=== PATIENT | male | born 1950 | race Caucasian/White ===

== ENCOUNTER 2018-04-02 12:41 | Inpatient (IN) | payer MEDICARE, BC ==
[2018-04-02] VITALS (10 sets, daily range): BP systolic 108–165; BP diastolic 70–105
[~2018-04-02] VITALS: Ht 175.3 cm; Wt 123.8 kg
[~2018-04-02 12:41] MED LIST: CENTRUM SILVER1 EAC4 PO; DOXAZOSIN MESYLA2 MG PO; FISH OIL500 MG PO; GLIMEPIRIDE2 MG PO; METFORMIN HCL500 M2 PO; METHOTREXATE2.5 MG PO; MONTELUKAST SOD10 MG PO; TAMSULOSIN HCL0.4 MG PO; WARFARIN PO
[2018-04-02] MEDS ORDERED: ENOXAPARIN SODIUM INJ 100 MG/ML SYR SC STA (12:47)
[2018-04-02] MEDS ORDERED: ASPIRIN 81 MG CHEW TAB PO ONE (13:15)
[2018-04-02] MEDS ORDERED: SODIUM CHLORIDE FLUSH 10 ML SYR INJ PRN (13:15)
[2018-04-02 13:39] LABS: BASOPHILS # (AUTO) 0.1 (0.0-0.1); BASOPHILS % 0.5 % (0.0-1.0); EOSINOPHILS # (AUTO) 0.3 (0.0-0.4); EOSINOPHILS % 2.2 % (0.0-6.0); HEMATOCRIT 45.5 % (38.2-49.6); HEMOGLOBIN 15.2 g/dL (14.0-18.0); LYMPHOCYTES # (AUTO) 1.5 (1.0-3.2); LYMPHOCYTES % 12.6 % (18.0-39.1); MEAN CORPUSCULAR HEMOGLOBIN 31.3 pg (28-32); MEAN CORPUSCULAR HGB CONC 33.4 g/dL (31-35); MEAN CORPUSCULAR VOLUME 93.6 fL (81-99); MONOCYTES # (AUTO) 1.3 (0.2-0.8); MONOCYTES % 10.4 % (4.4-11.3); NEUTROPHILS # (AUTO) 8.9 (2.1-6.9); NEUTROPHILS % 73.6 % (38.7-80.0); PLATELET COUNT 195 x10e3/uL (140-360); RED BLOOD COUNT 4.86 x10e6/uL (4.3-5.7); RED CELL DISTRIBUTION WIDTH 16.1 % (11.7-14.4)
[2018-04-02 13:54] LABS: INR 0.98; PARTIAL THROMBOPLASTIN TIME 26.3 seconds (23.8-35.5); PROTHROMBIN TIME 13.9 seconds (11.9-14.5)
[2018-04-02 14:01] LABS: ALANINE AMINOTRANSFERASE 27 IU/L (0-55); ALBUMIN 3.5 g/dL (3.5-5.0); ALKALINE PHOSPHATASE 68 IU/L (40-150); ANION GAP 16.3 mmol/L (8-16); BLOOD UREA NITROGEN 13 mg/dL (7-26); BUN/CREATININE RATIO 11 (6-25); CARBON DIOXIDE 22 mmol/L (22-29); CHLORIDE 102 mmol/L (98-107); CREATINE KINASE 81 IU/L (30-200); CREATININE, SERUM 1.16 mg/dL (0.72-1.25); EST GLOMERULAR FILTRATION RATE > 60 ML/MIN (60-); GLUCOSE 218 mg/dL (74-118); POTASSIUM 4.3 mmol/L (3.5-5.1); SODIUM 136 mmol/L (136-145)
[2018-04-02 14:02] LABS: CLARITY,URINE SL CLOUDY (CLEAR); COLOR,URINE AMBER (YELLOW); LEUKOCYTE ESTERASE ,URINE NEGATIVE (NEGATIVE); NITRITE,URINE NEGATIVE (NEGATIVE)
[2018-04-02 14:03] LABS: BILIRUBIN,URINE 1+ (NEGATIVE); KETONES,URINE NEGATIVE (NEGATIVE); PROTEIN,URINE DIPSTICK 2+ (NEGATIVE); URINE UROBILINOGEN 1 mg/dL (0.2 - 1)
--- NOTE | 2018-04-02 14:05 | Diagnostic Imaging Report ---
Examination: Single AP view of the chest. COMPARISON: November 21, 2016 INDICATION: Shortness of breath DISCUSSION: Lines/tubes: None. Lungs: Left lung base obscured due to soft tissue attenuation. The remainder the lungs are clear. Pleura: There is no pleural effusion or pneumothorax. Heart and mediastinum: The heart and central vasculature is enlarged Bones and soft tissues: No acute bony abnormalities. IMPRESSION: Cardiomegaly. No edema or visualized pneumonia. Signed by: Dr. Mitesh Joy M.D. on 04/02/2018 2:02 PM
[2018-04-02 14:12] LABS: BACTERIA,URINE MODERATE /HPF; RBC,URINE 0-5 /HPF (0-5); RENAL EPITHELIAL CELLS,URINE RARE
[2018-04-02 14:13] LABS: AMORPHOUS SEDIMENT,URINE MANY (FEW); MUCUS,URINE MANY (RARE)
--- NOTE | 2018-04-02 15:15 | Diagnostic Imaging Report ---
EXAMINATION: CT scan of the chest with contrast. TECHNIQUE: Helical CT images of the chest were performed from the lung apices to the level of the adrenal glands after the intravenous administration of cc of Omnipaque 300. Coronal and sagittal reformatted images were obtained.Cervical disc herniation COMPARISON: None. CLINICAL HISTORY:Shortness of breath, chest pain DISCUSSION: LINES/TUBES: None. LUNGS AND AIRWAYS: Multifocal pulmonary emboli involving all lobar branches of the right lung and predominantly involving the lobar branches of the left lower lobe. Clots extends into the main pulmonary arteries, greater on the right. The main pulmonary artery measures 4 cm in transverse dimension. No bowing of the interventricular septum. Small left pleural effusion with atelectasis. PLEURA: No pneumothorax or pleural effusions. HEART AND MEDIASTINUM: The thyroid gland is normal. The heart is enlarged. Mild coronary artery calcifications. LYMPH NODES: There is no mediastinal, hilar or axillary lymphadenopathy. ABDOMEN: Limited contrast-enhanced views of the upper abdomen show no abnormality within the visualized liver, spleen, pancreas, or kidneys. The adrenal glands are normal. BONES AND SOFT TISSUES: Skeletal hyperostosis. IMPRESSION: Bilateral pulmonary emboli, predominantly lobar with mild involvement of the main pulmonary arteries. Small left effusion and atelectasis. Discussed with Dr. Ordonez at at 307pm. Signed by: Dr. Mitesh Joy M.D. on 04/02/2018 3:12 PM
[2018-04-02] MEDS ORDERED: SODIUM CHLORIDE 0.9% 50ML 50 ML ONE (16:00)
[2018-04-02] MEDS ORDERED: IOPAMIDOL 370 MG/ML 200 ML INFUS..BTL INJ ONE (16:00)
[2018-04-02] MEDS: ENOXAPARIN SODIUM INJ 100 MG/ML SYR SC SCH (20:07)
[2018-04-02] MEDS: MORPHINE SULFATE 2 MG/ML SYR IV PRN ×2 (20:08→23:02)
[2018-04-02] MEDS: ONDANSETRON HCL INJ 2 MG/ML VIAL IV PRN (20:12)
[2018-04-02] MEDS: DOXAZOSIN MESYLATE 2 MG TAB PO SCH (20:49)
[2018-04-02] MEDS: MONTELUKAST SODIUM 10 MG TAB PO SCH (20:50)
[2018-04-02] MEDS: METFORMIN HCL 500 MG TAB PO SCH (20:50)
[2018-04-02 21:33] LABS: CREATINE KINASE MB 2.1 ng/mL (0-5.0)
[2018-04-03] VITALS (13 sets, daily range): BP systolic 115–134; BP diastolic 74–94
[2018-04-03] MEDS ORDERED: ENOXAPARIN SODIUM INJ 100 MG/ML SYR SC SCH (01:15)
[2018-04-03] MEDS: MORPHINE SULFATE 2 MG/ML SYR IV PRN ×2 (03:00→06:24)
[2018-04-03 05:26] LABS: CHOL/HDL RATIO 4.1 (3.9-4.7)
[2018-04-03] MEDS: ONDANSETRON HCL INJ 2 MG/ML VIAL IV PRN (06:24)
[2018-04-03] MEDS: TAMSULOSIN HCL 0.4 MG CAP PO SCH (09:00)
[2018-04-03] MEDS: METFORMIN HCL 500 MG TAB PO SCH ×2 (09:00→16:30)
[2018-04-03] MEDS: ENOXAPARIN SODIUM INJ 100 MG/ML SYR SC SCH ×2 (09:00→21:00)
[2018-04-03] MEDS ORDERED: METFORMIN HCL 500 MG TAB PO SCH (16:30)
[2018-04-03] MEDS: DOXAZOSIN MESYLATE 2 MG TAB PO SCH (21:00)
[2018-04-03] MEDS: MONTELUKAST SODIUM 10 MG TAB PO SCH (21:00)
[2018-04-04] VITALS: BP 128/73
[2018-04-04 04:00] VITALS: BP 141/86
[2018-04-04 07:35] VITALS: BP 135/82
[2018-04-04 07:48] VITALS: BP 147/103
[2018-04-04] MEDS: METFORMIN HCL 500 MG TAB PO SCH (07:57)
[2018-04-04] MEDS: ENOXAPARIN SODIUM INJ 100 MG/ML SYR SC SCH (09:42)
[2018-04-04] MEDS: TAMSULOSIN HCL 0.4 MG CAP PO SCH (09:42)
[2018-04-04 12:05] VITALS: BP 152/107
[2018-04-04] MEDS ORDERED: XARELTO10 MG PO (13:07)
[2018-04-04] MEDS ORDERED: XARELTO20 MG PO (13:10)
[2018-04-04] MEDS ORDERED: WARFARIN SOD 5 MG TAB PO SCH (17:00)
--- NOTE | 2018-04-05 10:40 | Discharge Summary ---
DISCHARGE DIAGNOSES 1. Deep venous thrombosis of the right leg. 2. Pulmonary embolus. HISTORY OF PRESENT ILLNESS AND HOSPITAL COURSE: Patient is a gentleman who came in with some right leg pain and a little bit of swelling on that leg. DVT was confirmed by ultrasonography. He also had some occasional chest pain. CT scan was done that did show some pulmonary embolus. He was brought in and placed on Lovenox, which he tolerated well and was ambulating well. We had a long discussion between the 2 options with a newer oral anticoagulant versus warfarin, and the pros and cons of bleeding, , cost. Patient chose he wanted to go ahead with the oral treatments. He was discharged home on Xarelto 15 mg b.i.d. for 3 weeks, and then 20 mg once a day thereafter. He will follow up with me in 2 weeks. Please see hospital chart for full details. EZEKIEL DE SOUZA MD Job#: [id number] ID
== END 2018-04-04 14:26 | disposition home or self-care (01) | DRG 299 ==
LOC: ER 12:41 → ERHOLD 13:09 → ICU 18:17 → MED/SURG3 04-03 15:03
PROVIDERS: ADMIT Internal Medicine; ATTEND Internal Medicine
DX: I82.401 Acute embolism and thrombosis of unspecified deep veins of right lower extremity (principal); I26.99 Other pulmonary embolism without acute cor pulmonale; I10 Essential (primary) hypertension; E11.9 Type 2 diabetes mellitus without complications; G47.33 Obstructive sleep apnea (adult) (pediatric); M19.90 Unspecified osteoarthritis, unspecified site; N40.0 Benign prostatic hyperplasia without lower urinary tract symptoms; Z79.01 Long term (current) use of anticoagulants; Z79.84 Long term (current) use of oral hypoglycemic drugs
CPT/HCPCS: 36415; 71045; 71260; 80053; 80061; 81001; 82550; 82553; 82948; 84484; 85025; 85610; 85730; 87086; 93005; 99284; J1650; J2270; J2405; Q9967

== ENCOUNTER → 2018-08-01 | Outpatient (CLI) | payer MEDICARE, BC ==
[~2018-08-01] MED LIST changes: +XARELTO10 MG PO; +XARELTO20 MG PO
--- NOTE | 2018-08-01 10:47 | Diagnostic Imaging Report ---
Lumbar Spine Radiographs: 3 views views and sacrum 2 views HISTORY: Pain. Neuromuscular dysfunction of bladder. COMPARISON: None available. DISCUSSION: There are five non-rib bearing lumbar vertebral bodies. The alignment of the spine is within normal limits. No displaced fracture or compression deformity is identified. Multilevel degenerative disc disease and spondylosis of the lumbar spine, most severely at L4-L5 and L5-S1. Marked bilateral facet arthropathy at L4-L5 and L5-S1. Large bridging osteophytes on the left L3-L4. 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 InterStim device projected on the left hemisacrum, with distal electrodes projected on the lower pelvis. Battery pack projected on the left gluteal region. Small phleboliths projected on the left hemipelvis. IMPRESSION: Multilevel degenerative disc disease and spondylosis of the lumbar spine, particularly at L4-L5 and L5-S1. Signed by: Dr. Kasi Prakash M.D. on 08/01/2018 10:44 AM
== END ==
LOC: RAD 09:34
PROVIDERS: ATTEND Urology
DX: N39.41 Urge incontinence (principal); M54.5 Low back pain; M51.37 Other intervertebral disc degeneration, lumbosacral region
CPT/HCPCS: 72100; 72220

== ENCOUNTER → 2019-12-02 | Outpatient (CLI) | payer MEDICARE, BC ==
--- NOTE | 2019-12-02 15:31 | Diagnostic Imaging Report ---
X-ray pelvis AP History: Incontinence Findings: InterStim device is seen without a change compared with the previous study of 08/01/2018. There is presence of air in the rectum. Other incidental findings include degenerative changes of the lumbar spine and regional bones along with dystrophic calcification and/or myositis ossificans especially noticeable in the ischiopubic regions. Phleboliths. Impression: As above Signed by: Iam Booker MD on 12/02/2019 3:28 PM
--- NOTE | 2019-12-02 15:34 | Diagnostic Imaging Report ---
X-ray sacrum AP and lateral. Comparison: 08/01/2018 History: InterStim device. Incontinence. Please see and report pelvis AP on the same date for details. The battery pack of the interstitial device is seen in the gluteal region. There is no sacral coccygeal fracture. Impression: As above. Also please see the report on pelvis AP on the same date. Signed by: Iam Booker MD on 12/02/2019 3:30 PM
== END ==
LOC: RAD 14:20
PROVIDERS: ATTEND Urology
DX: N39.41 Urge incontinence (principal)
CPT/HCPCS: 72170; 72220

== ENCOUNTER 2020-04-08 12:15 | Inpatient (IN) | payer MEDICARE, BC ==
[2020-04-08] VITALS (7 sets, daily range): BP systolic 102–142; BP diastolic 77–102
[~2020-04-08] VITALS: Ht 175.3 cm; Wt 128.8 kg
[2020-04-08] MEDS ORDERED: DILTIAZEM HCL 5 MG/ML 5 ML VIAL IV STA (12:37)
[2020-04-08] MEDS ORDERED: DIGOXIN INJ 0.25 MG/ML 2 ML AMP IV ONE (12:45)
[2020-04-08 13:03] LABS: BASOPHILS % 0.5 % (0.0-1.0); EOSINOPHILS % 0.5 % (0.0-6.0); HEMATOCRIT 45.1 % (38.2-49.6); HEMOGLOBIN 14.4 g/dL (14.0-18.0); LYMPHOCYTES # (AUTO) 1.1 (1.0-3.2); LYMPHOCYTES % 12.9 % (18.0-39.1); MEAN CORPUSCULAR HEMOGLOBIN 32.1 pg (28-32); MEAN CORPUSCULAR HGB CONC 31.9 g/dL (31-35); MEAN CORPUSCULAR VOLUME 100.4 fL (81-99); MONOCYTES # (AUTO) 0.7 (0.2-0.8); MONOCYTES % 8.5 % (4.4-11.3); NEUTROPHILS # (AUTO) 6.4 (2.1-6.9); NEUTROPHILS % 76.6 % (38.7-80.0); PLATELET COUNT 272 x10e3/uL (140-360); RED BLOOD COUNT 4.49 x10e6/uL (4.3-5.7); RED CELL DISTRIBUTION WIDTH 15.6 % (11.7-14.4)
[2020-04-08] MEDS ORDERED: AMIODARONE HCL 150MG 100 ML ONE (13:12)
[2020-04-08 13:15] LABS: INR 1.71; PARTIAL THROMBOPLASTIN TIME 32.3 seconds (23.8-35.5); PROTHROMBIN TIME 20.9 seconds (11.9-14.5)
[2020-04-08] MEDS ORDERED: AMIODARONE HCL 360MG 200 ML IV SCH ×2 (13:15→18:00)
[2020-04-08] MEDS ORDERED: AMIODARONE HCL 150MG 100 ML IV SCH (13:15)
[2020-04-08] MEDS ORDERED: AMIODARONE 900MG 500 ML IV SCH (13:15)
[2020-04-08] MEDS ORDERED: AMIODARONE HCL 100 ML IV ONE (13:15)
[2020-04-08 13:25] LABS: ALANINE AMINOTRANSFERASE 42 IU/L (0-55); ALBUMIN 3.9 g/dL (3.5-5.0); ALBUMIN/GLOBULIN RATIO 1.7 (0.8-2.0); ALKALINE PHOSPHATASE 46 IU/L (40-150); ANION GAP 14.1 mmol/L (8-16); BLOOD UREA NITROGEN 11 mg/dL (7-26); BUN/CREATININE RATIO 13 (6-25); CALCIUM 8.6 mg/dL (8.4-10.2); CARBON DIOXIDE 25 mmol/L (22-29); CHLORIDE 104 mmol/L (98-107); CREATINE KINASE 94 IU/L (30-200); CREATININE, SERUM 0.87 mg/dL (0.72-1.25); EST GLOMERULAR FILTRATION RATE > 60 ML/MIN (60-); GLUCOSE 223 mg/dL (74-118); MAGNESIUM 1.6 MG/DL (1.3-2.1); POTASSIUM 4.1 mmol/L (3.5-5.1); SODIUM 139 mmol/L (136-145)
[2020-04-08 13:45] LABS: THYROID STIMULATING HORMONE 1.046 uIU/mL (0.350-4.940)
[2020-04-08] MEDS ORDERED: FAMOTIDINE 20 MG/2 ML VIAL IV SCH (14:45)
[2020-04-08] MEDS ORDERED: NITROGLYCERIN 0.4 MG SUBL SL PRN (14:45)
[2020-04-08] MEDS ORDERED: ONDANSETRON HCL INJ 2MG/ML 2ML 2 MG/ML VIAL IV PRN (14:45)
[2020-04-08] MEDS ORDERED: METOPROLOL TARTRATE INJ 1 MG/ML VIAL IV NR (15:00)
[2020-04-08] MEDS ORDERED: DIGOXIN INJ 0.25 MG/ML 2 ML AMP IV NR (15:00)
[2020-04-08] MEDS: MORPHINE SULFATE 2 MG/ML SYR 1ML IV PRN (16:11)
[2020-04-08] MEDS: METOPROLOL TARTRATE 25 MG TAB PO SCH (18:45)
[2020-04-08 18:54] LABS: CREATINE KINASE MB 2.3 ng/mL (0-5.0)
[2020-04-08] MEDS: METOPROLOL TARTRATE INJ 1 MG/ML VIAL IV PRN (19:02)
[2020-04-08] MEDS: AMIODARONE 900MG 500 ML IV SCH (19:31)
[2020-04-09] VITALS (14 sets, daily range): BP systolic 95–154; BP diastolic 69–128
[2020-04-09] MEDS: FAMOTIDINE 20 MG/2 ML VIAL IV SCH ×2 (04:43→18:29)
[2020-04-09] MEDS: METOPROLOL TARTRATE 25 MG TAB PO SCH ×3 (04:43→13:47)
[2020-04-09] MEDS: METOPROLOL TARTRATE INJ 1 MG/ML VIAL IV PRN (04:45)
[2020-04-09 05:10] LABS: BASOPHILS # (AUTO) 0.1 (0.0-0.1); BASOPHILS % 0.7 % (0.0-1.0); EOSINOPHILS # (AUTO) 0.1 (0.0-0.4); EOSINOPHILS % 0.8 % (0.0-6.0); HEMATOCRIT 45.1 % (38.2-49.6); HEMOGLOBIN 14.4 g/dL (14.0-18.0); LYMPHOCYTES # (AUTO) 1.2 (1.0-3.2); LYMPHOCYTES % 14.2 % (18.0-39.1); MEAN CORPUSCULAR HEMOGLOBIN 33.6 pg (28-32); MEAN CORPUSCULAR HGB CONC 31.9 g/dL (31-35); MEAN CORPUSCULAR VOLUME 105.1 fL (81-99); MONOCYTES # (AUTO) 0.9 (0.2-0.8); MONOCYTES % 11.2 % (4.4-11.3); NEUTROPHILS # (AUTO) 6.1 (2.1-6.9); NEUTROPHILS % 72.7 % (38.7-80.0); PLATELET COUNT 165 x10e3/uL (140-360); RED BLOOD COUNT 4.29 x10e6/uL (4.3-5.7); RED CELL DISTRIBUTION WIDTH 15.8 % (11.7-14.4)
[2020-04-09 05:24] LABS: ALANINE AMINOTRANSFERASE 48 IU/L (0-55); ALBUMIN 3.8 g/dL (3.5-5.0); ALBUMIN/GLOBULIN RATIO 1.7 (0.8-2.0); ALKALINE PHOSPHATASE 40 IU/L (40-150); ANION GAP 12.5 mmol/L (8-16); BLOOD UREA NITROGEN 9 mg/dL (7-26); BUN/CREATININE RATIO 11 (6-25); CALCIUM 8.2 mg/dL (8.4-10.2); CARBON DIOXIDE 24 mmol/L (22-29); CHLORIDE 105 mmol/L (98-107); CHOL/HDL RATIO 3.3 (3.9-4.7); CHOLESTEROL 151 MD/DL (0-199); CREATININE, SERUM 0.82 mg/dL (0.72-1.25); EST GLOMERULAR FILTRATION RATE > 60 ML/MIN (60-); GLUCOSE 135 mg/dL (74-118); HDL CHOLESTEROL 46 MG/DL (40-60); LDL CHOLESTEROL 90 MG/DL (60-130); POTASSIUM 4.5 mmol/L (3.5-5.1); SODIUM 137 mmol/L (136-145); TRIGLYCERIDES 73 MG/DL (0-149)
[2020-04-09] MEDS ORDERED: FUROSEMIDE INJ 10 MG/ML 4 ML VIAL ONE (05:48)
[2020-04-09] MEDS: FUROSEMIDE INJ 10 MG/ML 4 ML VIAL IV SCH ×3 (06:18→21:30)
[2020-04-09] MEDS: MONTELUKAST SODIUM 10 MG TAB PO SCH (08:18)
[2020-04-09] MEDS: METFORMIN HCL 500 MG TAB CR PO SCH ×2 (08:18→18:28)
[2020-04-09] MEDS: TAMSULOSIN HCL 0.4 MG CAP PO SCH (08:18)
[2020-04-09] MEDS: DOXAZOSIN MESYLATE 2 MG TAB PO SCH (08:18)
[2020-04-09] MEDS: GLIMEPIRIDE 2 MG TAB PO SCH (08:18)
[2020-04-09] MEDS: AMIODARONE 900MG 500 ML IV SCH (13:19)
[2020-04-09] MEDS ORDERED: METOPROLOL TARTRATE 25 MG TAB PO SCH (14:30)
[2020-04-09] MEDS ORDERED: DIGOXIN INJ 0.25 MG/ML 2 ML AMP IV ONE (14:45)
[2020-04-09] MEDS: METOPROLOL TARTRATE 50 MG TAB PO SCH ×2 (17:31→21:31)
[2020-04-09] MEDS: RIVAROXABAN 20 MG TABLET PO SCH (18:29)
[2020-04-09] MEDS: MORPHINE SULFATE 2 MG/ML SYR 1ML IV PRN (22:17)
[2020-04-10] VITALS (14 sets, daily range): BP systolic 95–145; BP diastolic 59–97
[2020-04-10 05:38] LABS: BASOPHILS % 0.4 % (0.0-1.0); EOSINOPHILS # (AUTO) 0.1 (0.0-0.4); EOSINOPHILS % 0.5 % (0.0-6.0); HEMATOCRIT 42.7 % (38.2-49.6); HEMOGLOBIN 13.7 g/dL (14.0-18.0); LYMPHOCYTES # (AUTO) 1.1 (1.0-3.2); LYMPHOCYTES % 10.6 % (18.0-39.1); MEAN CORPUSCULAR HEMOGLOBIN 32.7 pg (28-32); MEAN CORPUSCULAR HGB CONC 32.1 g/dL (31-35); MEAN CORPUSCULAR VOLUME 101.9 fL (81-99); MONOCYTES # (AUTO) 1.1 (0.2-0.8); MONOCYTES % 10.1 % (4.4-11.3); NEUTROPHILS # (AUTO) 8.1 (2.1-6.9); NEUTROPHILS % 77.9 % (38.7-80.0); PLATELET COUNT 277 x10e3/uL (140-360); RED BLOOD COUNT 4.19 x10e6/uL (4.3-5.7); RED CELL DISTRIBUTION WIDTH 15.4 % (11.7-14.4)
[2020-04-10 06:08] LABS: BLOOD UREA NITROGEN 14 mg/dL (7-26); BUN/CREATININE RATIO 15 (6-25); CALCIUM 8.5 mg/dL (8.4-10.2); CARBON DIOXIDE 28 mmol/L (22-29); CHLORIDE 101 mmol/L (98-107); CREATININE, SERUM 0.95 mg/dL (0.72-1.25); EST GLOMERULAR FILTRATION RATE > 60 ML/MIN (60-); GLUCOSE 157 mg/dL (74-118); SODIUM 137 mmol/L (136-145)
[2020-04-10] MEDS: METOPROLOL TARTRATE 50 MG TAB PO SCH (06:43)
[2020-04-10] MEDS: FAMOTIDINE 20 MG/2 ML VIAL IV SCH ×2 (06:43→17:09)
[2020-04-10] MEDS: MONTELUKAST SODIUM 10 MG TAB PO SCH (10:09)
[2020-04-10] MEDS: METFORMIN HCL 500 MG TAB CR PO SCH ×2 (10:09→17:09)
[2020-04-10] MEDS: TAMSULOSIN HCL 0.4 MG CAP PO SCH (10:09)
[2020-04-10] MEDS: FUROSEMIDE INJ 10 MG/ML 4 ML VIAL IV SCH ×2 (10:09→21:00)
[2020-04-10] MEDS: DOXAZOSIN MESYLATE 2 MG TAB PO SCH (10:09)
[2020-04-10] MEDS: GLIMEPIRIDE 2 MG TAB PO SCH (10:09)
[2020-04-10] MEDS: AMIODARONE HCL 200 MG TAB PO SCH (17:09)
[2020-04-10] MEDS: METOPROLOL SUCCINATE 50 MG TAB XL PO SCH (17:09)
[2020-04-10] MEDS: RIVAROXABAN 20 MG TABLET PO SCH (17:09)
[2020-04-11] VITALS (8 sets, daily range): BP systolic 82–115; BP diastolic 62–97
[2020-04-11] MEDS: METOPROLOL SUCCINATE 50 MG TAB XL PO SCH ×2 (02:15→14:07)
[2020-04-11 05:23] LABS: BASOPHILS % 0.4 % (0.0-1.0); EOSINOPHILS # (AUTO) 0.1 (0.0-0.4); EOSINOPHILS % 0.6 % (0.0-6.0); HEMATOCRIT 42.2 % (38.2-49.6); HEMOGLOBIN 14.3 g/dL (14.0-18.0); LYMPHOCYTES # (AUTO) 1.1 (1.0-3.2); LYMPHOCYTES % 10.3 % (18.0-39.1); MEAN CORPUSCULAR HEMOGLOBIN 34.5 pg (28-32); MEAN CORPUSCULAR HGB CONC 33.9 g/dL (31-35); MEAN CORPUSCULAR VOLUME 101.7 fL (81-99); MONOCYTES # (AUTO) 1.4 (0.2-0.8); MONOCYTES % 13.5 % (4.4-11.3); NEUTROPHILS # (AUTO) 7.8 (2.1-6.9); NEUTROPHILS % 74.5 % (38.7-80.0); PLATELET COUNT 230 x10e3/uL (140-360); RED BLOOD COUNT 4.15 x10e6/uL (4.3-5.7); RED CELL DISTRIBUTION WIDTH 15.3 % (11.7-14.4)
[2020-04-11 05:43] LABS: ANION GAP 14.4 mmol/L (8-16); BLOOD UREA NITROGEN 16 mg/dL (7-26); BUN/CREATININE RATIO 16 (6-25); CALCIUM 8.5 mg/dL (8.4-10.2); CARBON DIOXIDE 29 mmol/L (22-29); CHLORIDE 98 mmol/L (98-107); EST GLOMERULAR FILTRATION RATE > 60 ML/MIN (60-); GLUCOSE 136 mg/dL (74-118); POTASSIUM 3.4 mmol/L (3.5-5.1); SODIUM 138 mmol/L (136-145)
[2020-04-11] MEDS: FAMOTIDINE 20 MG/2 ML VIAL IV SCH ×2 (06:00→17:01)
[2020-04-11] MEDS ORDERED: POTASSIUM CHLORIDE 20 MEQ TAB CR PO STA (07:30)
[2020-04-11] MEDS: AMIODARONE HCL 200 MG TAB PO SCH ×2 (09:36→17:01)
[2020-04-11] MEDS: GLIMEPIRIDE 2 MG TAB PO SCH (09:36)
[2020-04-11] MEDS: LOSARTAN POTASSIUM 25 MG TAB PO SCH (09:36)
[2020-04-11] MEDS: FUROSEMIDE INJ 10 MG/ML 4 ML VIAL IV SCH (09:36)
[2020-04-11] MEDS: DOXAZOSIN MESYLATE 2 MG TAB PO SCH (09:36)
[2020-04-11] MEDS: TAMSULOSIN HCL 0.4 MG CAP PO SCH (09:37)
[2020-04-11] MEDS: METFORMIN HCL 500 MG TAB CR PO SCH ×2 (09:37→17:01)
[2020-04-11] MEDS: MONTELUKAST SODIUM 10 MG TAB PO SCH (09:37)
[2020-04-11] MEDS: FUROSEMIDE 40 MG TAB PO SCH (17:01)
[2020-04-11] MEDS: RIVAROXABAN 20 MG TABLET PO SCH (17:01)
[2020-04-12] VITALS (8 sets, daily range): BP systolic 84–108; BP diastolic 59–87
[2020-04-12] MEDS: METOPROLOL SUCCINATE 50 MG TAB XL PO SCH ×2 (01:45→17:28)
[2020-04-12] MEDS: FUROSEMIDE 40 MG TAB PO SCH ×2 (05:40→17:26)
[2020-04-12] MEDS: FAMOTIDINE 20 MG/2 ML VIAL IV SCH ×2 (05:40→17:26)
[2020-04-12 07:34] LABS: BASOPHILS # (AUTO) 0.1 (0.0-0.1); BASOPHILS % 0.5 % (0.0-1.0); EOSINOPHILS # (AUTO) 0.1 (0.0-0.4); EOSINOPHILS % 0.6 % (0.0-6.0); HEMATOCRIT 46.7 % (38.2-49.6); HEMOGLOBIN 15.1 g/dL (14.0-18.0); LYMPHOCYTES # (AUTO) 1.4 (1.0-3.2); LYMPHOCYTES % 13.6 % (18.0-39.1); MEAN CORPUSCULAR HEMOGLOBIN 32.8 pg (28-32); MEAN CORPUSCULAR HGB CONC 32.3 g/dL (31-35); MEAN CORPUSCULAR VOLUME 101.5 fL (81-99); MONOCYTES # (AUTO) 1.5 (0.2-0.8); MONOCYTES % 14.9 % (4.4-11.3); NEUTROPHILS % 69.8 % (38.7-80.0); PLATELET COUNT 272 x10e3/uL (140-360); RED CELL DISTRIBUTION WIDTH 15.1 % (11.7-14.4)
[2020-04-12 07:59] LABS: ALBUMIN 3.6 g/dL (3.5-5.0); ALBUMIN/GLOBULIN RATIO 1.1 (0.8-2.0); ANION GAP 15.9 mmol/L (8-16); CREATININE, SERUM 1.29 mg/dL (0.72-1.25); MAGNESIUM 1.7 MG/DL (1.3-2.1); POTASSIUM 3.9 mmol/L (3.5-5.1)
[2020-04-12] MEDS: LOSARTAN POTASSIUM 25 MG TAB PO SCH (08:23)
[2020-04-12] MEDS: DOXAZOSIN MESYLATE 2 MG TAB PO SCH (08:23)
[2020-04-12] MEDS: MONTELUKAST SODIUM 10 MG TAB PO SCH (09:35)
[2020-04-12] MEDS: TAMSULOSIN HCL 0.4 MG CAP PO SCH (09:35)
[2020-04-12] MEDS: AMIODARONE HCL 200 MG TAB PO SCH ×2 (09:35→17:26)
[2020-04-12] MEDS: GLIMEPIRIDE 2 MG TAB PO SCH (09:35)
[2020-04-12] MEDS: METFORMIN HCL 500 MG TAB CR PO SCH ×2 (09:35→17:26)
[2020-04-12] MEDS: RIVAROXABAN 20 MG TABLET PO SCH (17:26)
[2020-04-13 00:24] VITALS: BP 107/66
[2020-04-13] MEDS: METOPROLOL SUCCINATE 50 MG TAB XL PO SCH ×2 (01:45→10:46)
[2020-04-13 05:15] VITALS: BP 101/55
[2020-04-13] MEDS: FAMOTIDINE 20 MG/2 ML VIAL IV SCH (06:24)
[2020-04-13] MEDS: FUROSEMIDE 40 MG TAB PO SCH (06:24)
[2020-04-13 08:00] VITALS: BP 103/79
[2020-04-13 08:08] VITALS: BP 128/113
[2020-04-13] MEDS: TAMSULOSIN HCL 0.4 MG CAP PO SCH (08:45)
[2020-04-13] MEDS: METFORMIN HCL 500 MG TAB CR PO SCH (08:45)
[2020-04-13] MEDS: GLIMEPIRIDE 2 MG TAB PO SCH (08:45)
[2020-04-13] MEDS: MONTELUKAST SODIUM 10 MG TAB PO SCH (08:46)
[2020-04-13] MEDS: AMIODARONE HCL 200 MG TAB PO SCH (08:46)
[2020-04-13 12:00] VITALS: BP 101/69
[2020-04-13] MEDS ORDERED: METOPROLOL SUCCINATE 50 MG TAB XL PO SCH (22:45)
[2020-06-16] MEDS ORDERED: FOLIC ACID PO (16:19)
[2020-06-16] MEDS ORDERED: METOPROLOL SUC200 MG PO (16:19)
[2020-06-16] MEDS ORDERED: METFORMIN HCL500 MG PO (16:19)
[2020-06-16] MEDS ORDERED: PIOGLITAZONE HC45 MG PO (16:19)
[2020-06-16] MEDS ORDERED: POTASSIUM CHLO20 ME1 PO (16:19)
[2020-06-16] MEDS ORDERED: IMIPRAMINE HCL25 MG PO (16:19)
[2020-06-16] MEDS ORDERED: AMIODARONE HCL200 MG PO (16:19)
[2020-06-16] MEDS ORDERED: WARFARIN SODIUM3 MG PO (16:19)
== END 2020-04-13 14:45 | disposition home or self-care (01) | DRG 308 ==
LOC: ER 12:48 → ERHOLD 14:32 → ICU 17:37 → IMCU 04-10 09:51 → MED/SURG3 04-11 14:09
PROVIDERS: ADMIT Internal Medicine; ATTEND Internal Medicine
DX: I48.4 Atypical atrial flutter (principal); I50.43 Acute on chronic combined systolic (congestive) and diastolic (congestive) heart failure; J96.01 Acute respiratory failure with hypoxia; I13.0 Hypertensive heart and chronic kidney disease with heart failure and stage 1 through stage 4 chronic kidney disease, or unspecified chronic kidney disease; Z68.41 Body mass index [BMI] 40.0-44.9, adult; N18.30 Chronic kidney disease, stage 3 unspecified; E11.22 Type 2 diabetes mellitus with diabetic chronic kidney disease; Z79.899 Other long term (current) drug therapy; E66.01 Morbid (severe) obesity due to excess calories; Z86.718 Personal history of other venous thrombosis and embolism; Z79.01 Long term (current) use of anticoagulants; I11.0 Hypertensive heart disease with heart failure; I48.91 Unspecified atrial fibrillation; N40.0 Benign prostatic hyperplasia without lower urinary tract symptoms; G47.30 Sleep apnea, unspecified; Z11.59 Encounter for screening for other viral diseases
CPT/HCPCS: 36415; 71045; 80048; 80053; 80061; 82550; 82553; 82948; 83735; 83880; 84443; 84484; 85025; 85610; 85730; 93005; 93306; 99284; J1160; J1940; J2270; J2405; U0002

== ENCOUNTER → 2020-06-17 | Day surgery (SDC) | payer MEDICARE, BC ==
[2020-06-14 12:50] LABS: BASOPHILS # (AUTO) 0.1 (0.0-0.1); BASOPHILS % 0.7 % (0.0-1.0); EOSINOPHILS # (AUTO) 0.2 (0.0-0.4); EOSINOPHILS % 3.4 % (0.0-6.0); HEMATOCRIT 45.1 % (38.2-49.6); HEMOGLOBIN 14.9 g/dL (14.0-18.0); LYMPHOCYTES # (AUTO) 1.6 (1.0-3.2); MEAN CORPUSCULAR HEMOGLOBIN 32.4 pg (28-32); MONOCYTES # (AUTO) 0.8 (0.2-0.8); MONOCYTES % 11.9 % (4.4-11.3); NEUTROPHILS % 59.4 % (38.7-80.0); PLATELET COUNT 263 x10e3/uL (140-360); RED CELL DISTRIBUTION WIDTH 14.5 % (11.7-14.4)
[2020-06-14 13:00] LABS: INR 1.3; PROTHROMBIN TIME 16.8 seconds (11.9-14.5)
[2020-06-14 13:09] LABS: ALANINE AMINOTRANSFERASE 19 IU/L (0-55); ALBUMIN 3.6 g/dL (3.5-5.0); ALBUMIN/GLOBULIN RATIO 1.2 (0.8-2.0); ALKALINE PHOSPHATASE 49 IU/L (40-150); ANION GAP 14.9 mmol/L (8-16); BLOOD UREA NITROGEN 15 mg/dL (7-26); BUN/CREATININE RATIO 15 (6-25); CALCIUM 8.4 mg/dL (8.4-10.2); CARBON DIOXIDE 29 mmol/L (22-29); CHLORIDE 98 mmol/L (98-107); CREATININE, SERUM 1.03 mg/dL (0.72-1.25); EST GLOMERULAR FILTRATION RATE > 60 ML/MIN (60-); GLUCOSE 152 mg/dL (74-118); POTASSIUM 3.9 mmol/L (3.5-5.1); SODIUM 138 mmol/L (136-145)
[2020-06-17] VITALS (7 sets, daily range): BP systolic 88–104; BP diastolic 54–77
[~2020-06-17] VITALS: Ht 175.3 cm; Wt 113.4 kg
[~2020-06-17] MED LIST changes: +ADENOSINE 3MG/1ML 30ML VIAL ONE; +AMIODARONE HCL200 MG PO; +FENTANYL CITRATE/PF 100MCG/2 ML INJ ONE; +FOLIC ACID PO; +HEPARIN SOD (PORCINE) 1000 UNIT/ML 30ML ONE; +HEPARIN SOD/SOD CHLORIDE 2,000 ML ONE; +IMIPRAMINE HCL25 MG PO; +IOPAMIDOL 370 MG/ML 200 ML INFUS..BTL INJ ONE; +LIDOCAINE HCL 2% LOCAL 20 ML VIAL ONE; +METFORMIN HCL500 MG PO; +METOPROLOL SUC200 MG PO; +MIDAZOLAM HCL 2 MG/2 ML VIAL ONE; +PIOGLITAZONE HC45 MG PO; +POTASSIUM CHLO20 ME1 PO; +SODIUM CHLORIDE 0.9% 1000ML 1,000 ML ONE; +SODIUM CHLORIDE 0.9% 50ML 50 ML ONE; +WARFARIN SODIUM3 MG PO
== END | disposition home or self-care (01) ==
LOC: CATH LAB 09:26
PROVIDERS: ATTEND Internal Medicine Cardiovascular Disease
DX: I25.10 Atherosclerotic heart disease of native coronary artery without angina pectoris (principal); R94.39 Abnormal result of other cardiovascular function study; I50.9 Heart failure, unspecified; I48.91 Unspecified atrial fibrillation; Z01.812 Encounter for preprocedural laboratory examination; Z20.828 Contact with and (suspected) exposure to other viral communicable diseases; Z79.01 Long term (current) use of anticoagulants; Z79.84 Long term (current) use of oral hypoglycemic drugs
CPT/HCPCS: 36415; 76937; 80053; 85025; 85610; 93454; 93571; C1753; C1760; C1769; J0153; J1644; J2001; J2250; J3010; J7030; Q9967; U0002; 99152; 99153

== ENCOUNTER → 2020-09-10 | Outpatient (CLI) | payer MEDICARE, BC ==
[~2020-09-10] MED LIST changes: -ADENOSINE 3MG/1ML 30ML VIAL ONE; -FENTANYL CITRATE/PF 100MCG/2 ML INJ ONE; -HEPARIN SOD (PORCINE) 1000 UNIT/ML 30ML ONE; -HEPARIN SOD/SOD CHLORIDE 2,000 ML ONE; -IOPAMIDOL 370 MG/ML 200 ML INFUS..BTL INJ ONE; -LIDOCAINE HCL 2% LOCAL 20 ML VIAL ONE; -MIDAZOLAM HCL 2 MG/2 ML VIAL ONE; -SODIUM CHLORIDE 0.9% 1000ML 1,000 ML ONE; -SODIUM CHLORIDE 0.9% 50ML 50 ML ONE
== END ==
LOC: RAD 08:43
PROVIDERS: ATTEND Urology
DX: N32.81 Overactive bladder (principal)
CPT/HCPCS: 72220

== ENCOUNTER → 2020-12-23 | Day surgery (SDC) | payer MEDICARE, BC ==
[2020-12-20 09:47] LABS: BASOPHILS % 0.5 % (0.0-1.0); EOSINOPHILS # (AUTO) 0.2 (0.0-0.4); HEMATOCRIT 43.8 % (38.2-49.6); HEMOGLOBIN 14.5 g/dL (14.0-18.0); LYMPHOCYTES # (AUTO) 1.9 (1.0-3.2); MEAN CORPUSCULAR HEMOGLOBIN 32.2 pg (28-32); MEAN CORPUSCULAR HGB CONC 33.1 g/dL (31-35); MEAN CORPUSCULAR VOLUME 97.3 fL (81-99); MONOCYTES # (AUTO) 0.8 (0.2-0.8); MONOCYTES % 9.9 % (4.4-11.3); NEUTROPHILS # (AUTO) 4.8 (2.1-6.9); NEUTROPHILS % 62.2 % (38.7-80.0); PLATELET COUNT 259 x10e3/uL (140-360); RED CELL DISTRIBUTION WIDTH 14.5 % (11.7-14.4)
[~2020-12-23] MED LIST changes: +ATORVASTATIN CA20 MG PO; +LIDOCAINE HCL 2% LOCAL INJ 5 ML SDV VIAL INJ ONE; +LOSARTAN POTASS25 MG PO; +MIDAZOLAM HCL 2 MG/2 ML VIAL ONE; +PROPOFOL IV EMULSION 10 MG/ML 20 ML VIAL ONE
[2020-12-23 07:20] LABS: INR 0.84; PARTIAL THROMBOPLASTIN TIME 24.5 seconds (23.8-35.5); PROTHROMBIN TIME 12.1 seconds (11.9-14.5)
[2020-12-23 08:00] VITALS: BP 133/94
== END | disposition home or self-care (01) ==
LOC: OR 06:24
PROVIDERS: ATTEND Internal Medicine Gastroenterology
DX: Z12.11 Encounter for screening for malignant neoplasm of colon (principal); D12.3 Benign neoplasm of transverse colon; K57.30 Diverticulosis of large intestine without perforation or abscess without bleeding; K64.8 Other hemorrhoids; K28.9 Gastrojejunal ulcer, unspecified as acute or chronic, without hemorrhage or perforation; Z71.3 Dietary counseling and surveillance; G47.33 Obstructive sleep apnea (adult) (pediatric); E66.01 Morbid (severe) obesity due to excess calories; E11.9 Type 2 diabetes mellitus without complications; I10 Essential (primary) hypertension; I48.91 Unspecified atrial fibrillation; Z01.810 Encounter for preprocedural cardiovascular examination; Z01.812 Encounter for preprocedural laboratory examination; Z79.01 Long term (current) use of anticoagulants; Z68.42 Body mass index [BMI] 45.0-49.9, adult
CPT/HCPCS: 36415 ×2; 45385; 82948; 85025; 85610; 85730; 88305; 93005; J2001; J2250; J2704; 45378

== ENCOUNTER → 2021-05-24 | Outpatient (CLI) | payer MEDICARE, BC ==
[~2021-05-24] MED LIST changes: +IOPAMIDOL 370 MG/ML 200 ML INFUS..BTL INJ ONE; -LIDOCAINE HCL 2% LOCAL INJ 5 ML SDV VIAL INJ ONE; +METOPROLOL TARTRATE INJ 1 MG/ML VIAL ONE; -MIDAZOLAM HCL 2 MG/2 ML VIAL ONE; +NITROGLYCERIN 0.4 MG SUBL ONE; -PROPOFOL IV EMULSION 10 MG/ML 20 ML VIAL ONE; +SODIUM CHLORIDE 0.9% 100 ML ONE
[2021-05-24 08:44] LABS: CREATININE, SERUM 0.91 mg/dL (0.72-1.25)
== END ==
LOC: CT 08:00
PROVIDERS: ATTEND Internal Medicine
DX: I05.9 Rheumatic mitral valve disease, unspecified (principal)
CPT/HCPCS: 36415; 75574; 82565; 84520; J7050; Q9967

== ENCOUNTER → 2021-07-22 | Outpatient (CLI) | payer MEDICARE, BC ==
[2021-07-19 08:55] LABS: BASOPHILS # (AUTO) 0.1 (0.0-0.1); BASOPHILS % 0.8 % (0.0-1.0); EOSINOPHILS # (AUTO) 0.3 (0.0-0.4); EOSINOPHILS % 2.8 % (0.0-6.0); HEMATOCRIT 46.5 % (38.2-49.6); HEMOGLOBIN 14.3 g/dL (14.0-18.0); LYMPHOCYTES # (AUTO) 2.6 (1.0-3.2); LYMPHOCYTES % 28.1 % (18.0-39.1); MEAN CORPUSCULAR HEMOGLOBIN 30.6 pg (28-32); MEAN CORPUSCULAR HGB CONC 30.8 g/dL (31-35); MEAN CORPUSCULAR VOLUME 99.6 fL (81-99); MONOCYTES % 11.5 % (4.4-11.3); NEUTROPHILS # (AUTO) 5.1 (2.1-6.9); NEUTROPHILS % 56.2 % (38.7-80.0); PLATELET COUNT 275 x10e3/uL (140-360); RED BLOOD COUNT 4.67 x10e6/uL (4.3-5.7); RED CELL DISTRIBUTION WIDTH 15.8 % (11.7-14.4)
[2021-07-19 09:24] LABS: ANION GAP 17.7 mmol/L (8-16); CALCIUM 9.2 mg/dL (8.4-10.2); CREATININE, SERUM 0.9 mg/dL (0.72-1.25); POTASSIUM 4.7 mmol/L (3.5-5.1)
[~2021-07-22] MED LIST changes: +ASPIRIN81 MG PO; +BUPIVACAINE HCL 0.5% INJ 30 ML VIAL INJ ONE; +CEFTRIAXONE 1 GM VIAL ONE; +CLINDAMYCIN 600MG / 50ML 50 ML IV ONE; +FOLIC ACID0.8 MG PO; +FUROSEMIDE80 MG PO; -IOPAMIDOL 370 MG/ML 200 ML INFUS..BTL INJ ONE; +LIDOCAINE 2% /EPINEPHRINE 20 ML SDV INJ ONE; -METOPROLOL TARTRATE INJ 1 MG/ML VIAL ONE; -NITROGLYCERIN 0.4 MG SUBL ONE; -SODIUM CHLORIDE 0.9% 100 ML ONE; +SODIUM CHLORIDE 0.9% 50ML 0 ML ONE
[2021-07-22 10:30] VITALS: BP 138/70
== END | disposition home or self-care (01) ==
LOC: DX 08:02 → OR 08:02 → EDSTATUS 10:00
PROVIDERS: ATTEND Urology
DX: T85.113A Breakdown (mechanical) of implanted electronic neurostimulator, generator, initial encounter (principal); Y83.8 Other surgical procedures as the cause of abnormal reaction of the patient, or of later complication, without mention of misadventure at the time of the procedure; Z01.810 Encounter for preprocedural cardiovascular examination; Z01.812 Encounter for preprocedural laboratory examination; Z01.818 Encounter for other preprocedural examination; Z20.822 Contact with and (suspected) exposure to COVID-19; Z53.8 Procedure and treatment not carried out for other reasons
CPT/HCPCS: 36415 ×2; 71046; 80048; 82948; 85025; 93005; U0002; J0696; J2001

== ENCOUNTER 2021-08-30 17:08 | Inpatient (IN) | payer MEDICARE, BC ==
[~2021-08-30] VITALS: Ht 175.3 cm; Wt 113.4 kg
[~2021-08-30 17:08] MED LIST changes: -BUPIVACAINE HCL 0.5% INJ 30 ML VIAL INJ ONE; -CEFTRIAXONE 1 GM VIAL ONE; -CLINDAMYCIN 600MG / 50ML 50 ML IV ONE; -LIDOCAINE 2% /EPINEPHRINE 20 ML SDV INJ ONE; -SODIUM CHLORIDE 0.9% 50ML 0 ML ONE
[2021-08-30 17:50] LABS: BASOPHILS % 0.4 % (0.0-1.0); EOSINOPHILS # (AUTO) 0.3 (0.0-0.4); EOSINOPHILS % 3.5 % (0.0-6.0); HEMATOCRIT 25.8 % (38.2-49.6); HEMOGLOBIN 8.1 g/dL (14.0-18.0); LYMPHOCYTES # (AUTO) 1.9 (1.0-3.2); LYMPHOCYTES % 25.4 % (18.0-39.1); MEAN CORPUSCULAR HEMOGLOBIN 30.9 pg (28-32); MEAN CORPUSCULAR HGB CONC 31.4 g/dL (31-35); MEAN CORPUSCULAR VOLUME 98.5 fL (81-99); MONOCYTES # (AUTO) 0.8 (0.2-0.8); MONOCYTES % 11.3 % (4.4-11.3); NEUTROPHILS # (AUTO) 4.3 (2.1-6.9); PLATELET COUNT 266 x10e3/uL (140-360); RED BLOOD COUNT 2.62 x10e6/uL (4.3-5.7); RED CELL DISTRIBUTION WIDTH 15.6 % (11.7-14.4)
[2021-08-30 17:55] LABS: INR 1.57; PROTHROMBIN TIME 19.8 seconds (11.9-14.5)
[2021-08-30 18:06] LABS: ALBUMIN 3.2 g/dL (3.5-5.0); ANION GAP 15.8 mmol/L (8-16); CALCIUM 8.4 mg/dL (8.4-10.2); CREATININE, SERUM 0.99 mg/dL (0.72-1.25); POTASSIUM 3.8 mmol/L (3.5-5.1)
[2021-08-30] MEDS ORDERED: SODIUM CHLORIDE 0.9% 250ML 250 ML IV ONE (18:15)
[2021-08-30] MEDS ORDERED: SODIUM CHLORIDE 0.9% 50ML 0 ML ONE (18:51)
[2021-08-30] MEDS ORDERED: IOPAMIDOL 370 MG/ML 200 ML INFUS..BTL INJ ONE ×2 (18:51→19:33)
[2021-08-30] MEDS ORDERED: SODIUM CHLORIDE 0.9% 0 ML ONE (18:53)
[2021-08-30] MEDS ORDERED: SODIUM CHLORIDE 0.9% 100 ML ONE (19:33)
[2021-08-30 21:10] VITALS: BP 137/63
[2021-08-30] MEDS ORDERED: BUMETANIDE1 MG PO (21:23)
[2021-08-30] MEDS ORDERED: TERBINAFINE HC250 MG PO (21:24)
[2021-08-30 21:28] VITALS: BP 137/63
[2021-08-30 21:33] VITALS: BP 137/63
[2021-08-30] MEDS ORDERED: SODIUM CHLORIDE 0.9% 250ML 250 ML ONE (22:02)
[2021-08-31] VITALS (7 sets, daily range): BP systolic 92–127; BP diastolic 68–90
[2021-08-31 05:23] LABS: BASOPHILS % 0.6 % (0.0-1.0); EOSINOPHILS # (AUTO) 0.3 (0.0-0.4); EOSINOPHILS % 4.2 % (0.0-6.0); HEMATOCRIT 25.6 % (38.2-49.6); HEMOGLOBIN 8.4 g/dL (14.0-18.0); LYMPHOCYTES # (AUTO) 1.6 (1.0-3.2); LYMPHOCYTES % 22.5 % (18.0-39.1); MEAN CORPUSCULAR HGB CONC 32.8 g/dL (31-35); MEAN CORPUSCULAR VOLUME 94.5 fL (81-99); MONOCYTES # (AUTO) 0.9 (0.2-0.8); MONOCYTES % 12.6 % (4.4-11.3); NEUTROPHILS # (AUTO) 4.1 (2.1-6.9); NEUTROPHILS % 59.7 % (38.7-80.0); PLATELET COUNT 262 x10e3/uL (140-360); RED BLOOD COUNT 2.71 x10e6/uL (4.3-5.7); RED CELL DISTRIBUTION WIDTH 16.1 % (11.7-14.4)
[2021-08-31] MEDS: SODIUM CHLORIDE 0.9% 1000ML 1,000 ML IV SCH (05:34)
[2021-08-31 06:08] LABS: ANION GAP 11.6 mmol/L (8-16); CALCIUM 7.9 mg/dL (8.4-10.2); CREATININE, SERUM 0.82 mg/dL (0.72-1.25); POTASSIUM 3.6 mmol/L (3.5-5.1)
[2021-08-31] MEDS ORDERED: METFORMIN HCL500 MG PO (09:39)
[2021-08-31] MEDS ORDERED: GLIMEPIRIDE2 MG PO (09:40)
[2021-08-31] MEDS ORDERED: COQ-1030 MG PO (09:42)
[2021-08-31] MEDS ORDERED: OMEPRAZOLE-BIC1 EACH PO (09:42)
[2021-08-31] MEDS ORDERED: PROPOFOL IV EMULSION 10 MG/ML 20 ML VIAL ONE (12:06)
[2021-08-31] MEDS ORDERED: LIDOCAINE HCL 2% LOCAL INJ 5 ML SDV VIAL INJ ONE (12:06)
[2021-08-31] MEDS ORDERED: DEXTROSE 50% SYRINGE 50 ML IV PRN (12:15)
[2021-08-31] MEDS ORDERED: MIDAZOLAM HCL 2 MG/2 ML VIAL ONE (12:28)
[2021-08-31] MEDS ORDERED: FENTANYL CITRATE/PF 100MCG/2 ML INJ ONE (12:28)
[2021-08-31] MEDS: INSULIN LISPRO 100 UNIT/1 ML 3ML VIAL SQ SCH ×2 (16:20→22:16)
[2021-08-31] MEDS ORDERED: MONTELUKAST SODIUM 10 MG TAB PO SCH (21:00)
[2021-08-31] MEDS ORDERED: ATORVASTATIN 20 MG TAB PO SCH (21:00)
[2021-08-31 23:57] LABS: % IRON SATURATION 7 % (15-50); IRON 21 ug/dL (65-175); TOTAL IRON BINDING CAPACITY 309 ug/dL (261-478); TRANSFERRIN 221 mg/dL (174-364)
[2021-09-01] MEDS: SODIUM CHLORIDE 0.9% 1000ML 1,000 ML IV SCH (01:15)
[2021-09-01 04:00] VITALS: BP 119/72
[2021-09-01 05:02] LABS: BASOPHILS % 0.5 % (0.0-1.0); EOSINOPHILS # (AUTO) 0.4 (0.0-0.4); EOSINOPHILS % 5.9 % (0.0-6.0); HEMATOCRIT 29.5 % (38.2-49.6); HEMOGLOBIN 9.4 g/dL (14.0-18.0); LYMPHOCYTES # (AUTO) 1.8 (1.0-3.2); LYMPHOCYTES % 23.5 % (18.0-39.1); MEAN CORPUSCULAR HEMOGLOBIN 30.9 pg (28-32); MEAN CORPUSCULAR HGB CONC 31.9 g/dL (31-35); MONOCYTES # (AUTO) 0.9 (0.2-0.8); MONOCYTES % 11.3 % (4.4-11.3); NEUTROPHILS # (AUTO) 4.4 (2.1-6.9); NEUTROPHILS % 58.1 % (38.7-80.0); PLATELET COUNT 329 x10e3/uL (140-360); RED BLOOD COUNT 3.04 x10e6/uL (4.3-5.7); RED CELL DISTRIBUTION WIDTH 16.3 % (11.7-14.4)
[2021-09-01 05:29] LABS: ALBUMIN 3.3 g/dL (3.5-5.0); ALBUMIN/GLOBULIN RATIO 1.1 (0.8-2.0); ANION GAP 15.2 mmol/L (8-16); CALCIUM 8.9 mg/dL (8.4-10.2); CREATININE, SERUM 0.85 mg/dL (0.72-1.25); POTASSIUM 4.2 mmol/L (3.5-5.1)
[2021-09-01] MEDS: INSULIN LISPRO 100 UNIT/1 ML 3ML VIAL SQ SCH ×2 (07:30→12:06)
[2021-09-01] MEDS ORDERED: HEPARIN SOD (PORCINE) 1000 UNIT/ML SDV ONE (07:44)
[2021-09-01 07:59] VITALS: BP 96/79
[2021-09-01 08:20] VITALS: BP 96/79
[2021-09-01] MEDS ORDERED: IRON SUCROSE 100 MG in SODIUM CHLORIDE 0.9% 100 ML 100 ML IV SCH (09:00)
[2021-09-01] MEDS ORDERED: SODIUM CHLORIDE 0.9% 250ML 250 ML ONE (10:16)
[2021-09-01 11:08] VITALS: BP 117/72
[2021-09-01 15:16] VITALS: BP 120/86
[2021-09-01] MEDS ORDERED: PANTOPRAZOLE SOD 40 MG TABEC PO SCH (21:00)
== END 2021-09-01 17:00 | disposition home or self-care (01) | DRG 378 ==
LOC: ER 17:24 → ERHOLD 18:36 → MED/SURG3 20:45
PROVIDERS: ADMIT Internal Medicine; ATTEND Internal Medicine
PROC: 30233N1 Transfusion of Nonautologous Red Blood Cells into Peripheral Vein, Percutaneous Approach (ICD-10-PCS; 2021-08-30)
PROC: 0DB68ZX Excision of Stomach, Via Natural or Artificial Opening Endoscopic, Diagnostic (ICD-10-PCS; principal; 2021-08-31 10:30)
DX: K25.0 Acute gastric ulcer with hemorrhage (principal); D62 Acute posthemorrhagic anemia; E66.01 Morbid (severe) obesity due to excess calories; Z68.36 Body mass index [BMI] 36.0-36.9, adult; D64.9 Anemia, unspecified; E78.00 Pure hypercholesterolemia, unspecified; E11.9 Type 2 diabetes mellitus without complications; E78.5 Hyperlipidemia, unspecified; K44.9 Diaphragmatic hernia without obstruction or gangrene; Z79.4 Long term (current) use of insulin
CPT/HCPCS: 36415; 43239; 74174; 78278; 80048; 80053; 82607; 82746; 82948; 83540; 84466; 85025; 85045; 85610; 86850; 86900; 86920; 88305; 88312; 93005; 94799; 96361; 99284; A9512; J1644; J1756; J2001; J2250; J3010; J7030; J7050; P9016; Q9967; U0002

== ENCOUNTER → 2021-09-15 | Outpatient (CLI) | payer MEDICARE, BC ==
[~2021-09-15] MED LIST changes: +BUMETANIDE1 MG PO; +COQ-1030 MG PO; +OMEPRAZOLE-BIC1 EACH PO; +TERBINAFINE HC250 MG PO
== END ==
LOC: RAD 14:46
PROVIDERS: ATTEND Internal Medicine Gastroenterology
DX: R06.02 Shortness of breath (principal); R79.81 Abnormal blood-gas level
CPT/HCPCS: 71046

== ENCOUNTER 2022-10-17 15:01 | Outpatient (RCR) | payer MEDICARE, BC | END 2022-11-05 | LOC: RESP 15:01 | PROVIDERS: ATTEND Internal Medicine | DX: J44.9 Chronic obstructive pulmonary disease, unspecified (principal); I27.0 Primary pulmonary hypertension | CPT/HCPCS: 94799 ==

== ENCOUNTER 2022-12-27 08:53 | Outpatient (RCR) | payer MEDICARE, BC | END 2023-01-05 | LOC: RESP 08:53 | PROVIDERS: ATTEND Internal Medicine | DX: J44.9 Chronic obstructive pulmonary disease, unspecified (principal); I50.22 Chronic systolic (congestive) heart failure; R53.83 Other fatigue; E78.2 Mixed hyperlipidemia; D50.9 Iron deficiency anemia, unspecified; E11.65 Type 2 diabetes mellitus with hyperglycemia; I27.0 Primary pulmonary hypertension; Z68.35 Body mass index [BMI] 35.0-35.9, adult | CPT/HCPCS: 94626 ×4; G0238 ×4 ==

== ENCOUNTER 2023-04-11 14:56 | Outpatient (RCR) | payer MEDICARE, BC | END 2023-05-08 | LOC: RESP 14:56 | PROVIDERS: ATTEND Internal Medicine | DX: J44.9 Chronic obstructive pulmonary disease, unspecified (principal); I27.0 Primary pulmonary hypertension | CPT/HCPCS: 94626 ×8; G0238 ×8 ==

== ENCOUNTER 2023-05-09 14:36 | Outpatient (RCR) | payer MEDICARE, BC ==
[2023-05-18] MEDS ORDERED: JARDIANCE25 MG PO (08:53)
[2023-05-18] MEDS ORDERED: VITAMIN D31 ML (08:53)
[2023-05-18] MEDS ORDERED: INSPRA50 MG PO (08:53)
[2023-05-18] MEDS ORDERED: LORATADINE10 MG PO (08:53)
[2023-05-18] MEDS ORDERED: REVATIO20 MG PO (08:53)
== END 2023-06-07 ==
LOC: RESP 14:36
PROVIDERS: ATTEND Internal Medicine
DX: J44.9 Chronic obstructive pulmonary disease, unspecified (principal); I27.0 Primary pulmonary hypertension
CPT/HCPCS: 94626 ×2; G0238 ×2

== ENCOUNTER → 2024-01-24 | Outpatient (REF) | payer MEDICARE, BC ==
[~2024-01-24] MED LIST changes: +DILTIAZEM HCL30 MG PO; +INSPRA50 MG PO; +JARDIANCE25 MG PO; +LORATADINE10 MG PO; +OMEPRAZOLE40 MG PO; +REVATIO20 MG PO; +VITAMIN D31 ML
== END ==
LOC: CT 08:52
PROVIDERS: ATTEND Internal Medicine
DX: R91.1 Solitary pulmonary nodule (principal)
CPT/HCPCS: 71250